=== PATIENT | female | born 1990 | race Caucasian/White ===

== ENCOUNTER 2017-12-24 13:47 | Emergency (ER) | payer OTHER ==
--- NOTE | 2017-12-24 13:55 | ED Physician Documentation ---
General Adult - HISTORIAN Historian: patient - HPI Stated Complaint: migraine Chief Complaint: Headache Onset: other (she has issues with migraines but this specific one has lasted several days . She ahd vomiting the last two days. No fever. ) Timing: still present Severity: moderate Further Comments: yes (reports history of migraine. she was seen in the clinic today for the migraine and when walking to the parking lot she became diaphoretic and mom was scared she was having a reaction to the med and she brought her into the ER. The patient states she still has the headache and she now feels nausea and fatigue. No fever. No head injury . Headache is the same although lasting longer - mom states it has been trending toward longer and longer migraines . She has an appt with Neuro.) - ROS CONST: no problems EYES/ENT: denies: problems with vision CVS/RESP: denies: chest pain, shortness of breath GI/: vomiting, nausea (with the migraine ) MS/SKIN/LYMPH: denies: joint pain, leg swelling, rash NEURO/PSYCH: headache, dizziness. denies: numbness, difficulty walking, difficulty with speech, anxiety - PAST HX Past History: other (anxiety, depression hyperthyroid (now hypothyroid due to treatment) ) Other History: none Surgeries/Procedures: other (ear tubes , T& A and breast reduction ) Immunizations: UTD Allergies/Adverse Reactions: Allergies Allergy/AdvReac Type Severity Reaction Status Date / Time gluten Allergy Verified 12/24/17 14:11 morphine Allergy Verified 12/24/17 14:11 phentermine Allergy Verified 12/24/17 14:11 rofecoxib [From Vioxx] Allergy Verified 12/24/17 14:11 Home Medications: Ambulatory Orders Medication Instructions Recorded Duloxetine HCl 120 mg PO DAILY 08/18/17 Levonorgestrel-Ethin Estradiol 1 each PO DAILY 08/18/17 [Quasense 0.15-0.03 Mg Tablet] Levothyroxine Sodium [Synthroid] 200 mcg PO DAILY u2 08/18/17 Lorazepam 1 mg PO TID PRN u2 08/18/17 Metoprolol Tartrate 50 mg PO prn u2 08/18/17 Azelastine HCl [Astelin] 1 applic IH D 12/24/17 Cholecalciferol (Vitamin D3) 400 unit PO D 12/24/17 [Vitamin D3] Codeine/Butalbital/ASA/Caffein 1 tab PO D 12/24/17 [Butalbital Comp-Codeine #3 Cap] Cyanocobalamin (Vitamin B-12) 1,000 mcg PO D 12/24/17 [Vitamin B-12] Nebivolol HCl [Bystolic] 10 mg PO PRN PRN 12/24/17 Vit Calc,Iron,Folic 1 tab PO D 12/24/17 [ Vitamins] diphenhydrAMINE HCL [Benadryl] 25 mg PO PRN PRN 12/24/17 - SOCIAL HX Smoking History: non-smoker Alcohol Use: none Drug Use: none - FAMILY HX Family History: No - REVIEWED ASSESSMENTS Nursing Assessment Reviewed: Yes Vitals Reviewed: Yes Progress - Progress Progress: 1510: reports the nausea is gone but pain of headache 03/23 DG 1536: headache remains 02/20 DG 1600: states pain is slightly easing but she now thinks her muscles at the base of her neck/shoulders could be the pain issue DG 1636: sleeping in room states her pain is now at a "tolerable level" 11/20. DG General Adult Physical Exam - PHYSICAL EXAM GENERAL APPEARANCE: mild distress EENT: eye inspection normal, ENT inspection normal, pharynx normal, no signs of dehydration, FATEMEH, TM's nml NECK: normal inspection RESPIRATORY: no resp distress, chest non-tender, breath sounds normal CVS: reg rate & rhythm, heart sounds normal, equal pulses, no murmur ABDOMEN: soft, normal bowel sounds BACK: normal inspection SKIN: warm/dry, normal color EXTREMITIES: non-tender, normal range of motion, no evidence of injury, no edema NEURO: oriented X3, CN's nml as tested, motor nml, sensation nml, mood/affect nml, cognition normal Discharge Clincal Impression: Migraine aura, persistent, intractable Referrals: Primary Doctor,No [Primary Care Provider] - 2 Days Comments: 1. Flexeril 10 mg take 1 by mouth TID as needed for muscle pain 2. Amitriptyline 25 mg take 1 by mouth at bedtime 3. Zofran 4 mg take 1 by mouth every 8 hours as needed for nausea 4. Follow up with Neurology as scheduled 5. Return to ER when unable to control pain or other concerns Condition: Stable Disposition: 01 HOME, SELF-CARE Decision to Admit: NO Date of Decison to Admit: 12/24/17 Decision Time: 16:40
[2017-12-24] MEDS: 0.9 % SODIUM CHLORIDE 1,000 ML IV ONE (14:45)
[2017-12-24] MEDS: ONDANSETRON HCL/PF 4 MG/ 2ML VIAL IVP ONE (14:47)
[2017-12-24 14:55] LABS: BASOPHILS % 0.8 (0.0-1.5); EOSINOPHILS % 2.6 % (0.0-6.8); MEAN CORPUSCULAR VOLUME 89.1 fl (80.0-100.0); MONOCYTES % 3.7 % (0.0-11.0)
[2017-12-24 15:10] LABS: eGFR (African) > 60; eGFR (Non-African) > 60
[2017-12-24] MEDS: fentaNYL CITRATE/PF 100 MCG/ 2ML AMP IVP ONE ×2 (15:18→15:40)
[2017-12-24] MEDS: ORPHENADRINE CITRATE 60 MG/2ML IV ONE (16:18)
[2017-12-24 16:57] VITALS: BP 108/72
== END 2017-12-24 16:50 | disposition home or self-care (01) ==
LOC: ED 13:47
DX: G43.119 Migraine with aura, intractable, without status migrainosus (principal)
CPT/HCPCS: 80053; 85025; J2360; J2405; J3010; J7030; 96365; 96375; 96376; 99284; S1016

== ENCOUNTER 2018-03-30 10:25 | Outpatient (CLI) | payer OTHER ==
--- NOTE | 2018-03-30 10:59 | Diagnostic Imaging Report ---
NIRU MERRILL [facility] [address] [facility] [address] [address] Report Submission Date: Mar 30, 2018 10:52:07 AM CDT Patient Study Name: YAZMIN ALMANZA Date: Mar 30, 2018 10:26:23 AM CDT Modality Type: DX Gender: F Description: UPPER EXTREMITY : 86 Institution: [facility] Physician: NIRU MERRILL Right forearm History: Pain after fall AP and lateral projections of the right forearm were obtained which demonstrate no evidence for acute fracture or dislocation. Mineralization is normal. Impression: No osseous abnormality. Electronically signed on Mar 30, 2018 10:52:07 AM CDT by: Melva DUNHAM
== END 2018-03-30 10:30 ==
LOC: RAD 10:25
PROVIDERS: ATTEND Family Medicine
DX: M79.601 Pain in right arm (principal)
CPT/HCPCS: 73090

== ENCOUNTER 2018-06-17 08:44 | Outpatient (CLI) | payer OTHER ==
[2018-06-17 09:28] LABS: eGFR (Non-African) > 60
== END 2018-06-17 08:46 ==
LOC: LAB 08:44
PROVIDERS: ATTEND Nurse Practitioner Family
DX: E03.9 Hypothyroidism, unspecified (principal); R25.2 Cramp and spasm
CPT/HCPCS: 36415; 80053; 84439; 84443; 84481

== ENCOUNTER 2018-06-23 11:07 | Emergency (ER) | payer OTHER ==
[2018-06-23] MEDS ORDERED: METOPROLOL TARTRATE 5 MG/5 ML VIAL IVP ONE (11:17)
[2018-06-23] MEDS ORDERED: 0.9 % SODIUM CHLORIDE 1,000 ML IV ONE ×2 (11:24→12:45)
--- NOTE | 2018-06-23 11:24 | ED Physician Documentation ---
Chest Pain - HISTORIAN Historian: patient - HPI Stated Complaint: chest pain/thyroid problems Chief Complaint: Chest Pain Additional Information: Patient with past medical history of hypothyroidism, presents with chest pain, shakiness and heart palpitations. She states her PCP increased her thyroid medication a few months ago when her TSH was above 4.0. A week ago she began to experience shakiness, heart palpitations so she had her TSH checked; it was 0.0014. Her PCP stopped her added dose of thyroid medication. Today while at work she her symptoms intensified so she came to the ED. She states she has had "thyroid storms" in the past and has metoprolol PRN to take at home but she was unable to get home to take it. Onset: hours (2) Timing: sudden onset Duration: sudden-onset Last known Well Date: 06/23/18 Last Known Well Time: 09:00 Context: other (at work) Severity: moderate - ROS CONST: none MS/LYMPH: none GI/: diarrhea EYES/ENT: none SKIN/ENDO: none NEURO/PSYCH: anxiety, depression - PAST HX AR risk factors: no pertinent history DVT/PE Risk Factors: none TAD/AAA risk factors: none Neuro deficit: none GI disease: none Lung disease: none Surgeries/Procedures: none Allergies/Adverse Reactions: Allergies Allergy/AdvReac Type Severity Reaction Status Date / Time gluten Allergy Verified 06/23/18 12:21 morphine Allergy Verified 06/23/18 12:21 phentermine Allergy Verified 06/23/18 12:21 rofecoxib [From Vioxx] Allergy Verified 06/23/18 12:21 Home Medications: Ambulatory Orders Medication Instructions Recorded Duloxetine HCl 120 mg PO DAILY 08/18/17 Levonorgestrel-Ethin Estradiol 1 each PO DAILY 08/18/17 [Quasense 0.15-0.03 Mg Tablet] Levothyroxine Sodium [Synthroid] 200 mcg PO DAILY u2 08/18/17 Lorazepam 1 mg PO TID PRN u2 08/18/17 Metoprolol Tartrate 50 mg PO prn u2 08/18/17 Azelastine HCl [Astelin] 1 applic IH D 12/24/17 Cholecalciferol (Vitamin D3) 400 unit PO D 12/24/17 [Vitamin D3] Codeine/Butalbital/ASA/Caffein 1 tab PO D 12/24/17 [Butalbital Comp-Codeine #3 Cap] Cyanocobalamin (Vitamin B-12) 1,000 mcg PO D 12/24/17 [Vitamin B-12] Nebivolol HCl [Bystolic] 10 mg PO PRN PRN 12/24/17 Vit Calc,Iron,Folic 1 tab PO D 12/24/17 [ Vitamins] diphenhydrAMINE HCL [Benadryl] 25 mg PO PRN PRN 12/24/17 - SOCIAL HX Smoking History: non-smoker Alcohol Use: none Drug Use: none - FAMILY HX Family HX: none - VITAL SIGNS Vital Signs: Vital Signs Temp Pulse Resp BP Pulse Ox 108/72 12/24/17 16:54 Progress - Progress Progress: 1353 Patient is feeling better. She is refusing to give a urine sample. - EKG/XRAY/CT EKG: NSR Comments: short QT interval ED Results Lab/Radiology - Radiology Radiology Impressions: Examination: Portable chest History: Evaluate lungs Comparison exam: None provided. Findings: Single view of the chest demonstrates a normal cardiac and mediastinal silhouette. Lung valencia without focal infiltrate. No blunting of the costophrenic margins. Osseous structures are appropriate for age. Impression: No acute pulmonary process. Electronically signed on Jun 23, 2018 12:24:59 PM MANAGING ATTORNEY by: Abelardo Randall - Orders Orders: ED Orders Category Date Time Status Place IV Lock 1T Care 06/23/18 11:14 Ordered CHEST 1VIEW [RAD] Stat Exams 06/23/18 Ordered CBC/PLATELET/DIFF Routine Lab 06/23/18 Ordered CMP Routine Lab 06/23/18 Ordered NT-proBNP Stat Lab 06/23/18 Ordered THYROID PANEL (TSH, FT3, FT4) Stat Lab 06/23/18 Ordered TROPONIN I (cTnI) Stat Lab 06/23/18 Ordered UA W/MICRO IF INDICATED Routine Lab 06/23/18 11:16 Ordered UDS [DRUG SCREEN URINE MEDICAL ONLY] Routine Lab 06/23/18 Ordered URINE HCG [URINE HCG] Stat Lab 06/23/18 Uncollected Metoprolol Tartrate [Toprol] Med 06/23/18 11:17 Once 5 mg IVP NOW ONE EKG WITH COMPARISON Stat Ther 06/23/18 Ordered Chest Pain Physical Exam - EXAM General Appearance: anxious EENT: FATEMEH Neck: nml inspection Respiratory: no resp. distress, nml breath sounds CVS: no murmur, tachycardia Abdomen: soft, normal bowel sounds, non-tender Skin: warm/dry Extremities: non-tender Neuro: oriented X3, CN's nml as tested, motor nml, sensation nml Discharge Clincal Impression: Heart palpitations Referrals: Christi Riley DO [Primary Care Provider] - 2 Days Additional Instructions: 1. Stop taking ALL of your thyroid medication. Do NOT restart this medication until you follow up with your primary provider 2. Take your Metoprolol as directed by your primary provider 3. Return to the ED with chest pain, shortness of breath, or heart palpitations. 4. Follow up with your PCP within 3 days. Comments: Solumedrol, Tapazole, Metoprolol IV, 2 liters normal saline given in ED. Condition: Stable Disposition: 01 HOME, SELF-CARE Decision to Admit: NO Date of Decison to Admit: 06/23/18 Decision Time: 13:54
[2018-06-23] MEDS ORDERED: LORazepam 2 MG/ML VIAL IVP ONE (11:35)
[2018-06-23 11:45] LABS: MEAN CORPUSCULAR HEMOGLOBIN 30.6 pg (28.0-34.0)
[2018-06-23 11:46] LABS: BASOPHILS % 0.2 (0.0-1.5); MONOCYTES % 5.7 % (0.0-11.0); NEUTROPHILS # 3.1 # k/uL (1.4-7.7)
[2018-06-23 12:01] LABS: eGFR (Non-African) > 60
--- NOTE | 2018-06-23 12:27 | Diagnostic Imaging Report ---
PABLO JUSTICE [facility] [address] [facility] [address] [address] Report Submission Date: Jun 23, 2018 12:24:59 PM [employer]URE Patient Study Name: YAZMIN ALMANZA Date: Jun 23, 2018 11:50:51 AM [employer] Modality Type: DX Gender: F Description: CHEST : 86 Institution: [facility] Physician: PABLO JUSTICE Examination: Portable chest History: Evaluate lungs Comparison exam: None provided. Findings: Single view of the chest demonstrates a normal cardiac and mediastinal silhouette. Lung valencia without focal infiltrate. No blunting of the costophrenic margins. Osseous structures are appropriate for age. Impression: No acute pulmonary process. Electronically signed on Jun 23, 2018 12:24:59 PM [employer] PRESSURE by: Abelardo DUNHAM
[2018-06-23] MEDS ORDERED: methylPREDNISolone SOD SUCC 125 MG/2 ML VIAL IVP ONE (12:31)
[2018-06-23] MEDS ORDERED: ONDANSETRON HCL/PF 4 MG/ 2ML VIAL IVP ONE (12:50)
[2018-06-23] MEDS ORDERED: ONDANSETRON HCL/PF 4 MG/ 2ML VIAL ONE (12:50)
[2018-06-23 14:11] VITALS: BP 111/71
[2018-06-24] MEDS ORDERED: METHIMAZOLE 10 MG TABLET PO ONE (11:44)
== END 2018-06-23 14:09 | disposition home or self-care (01) ==
LOC: ED 11:07 → SUPCPDRO 11:07 → ED 14:09
DX: R00.2 Palpitations (principal); E03.9 Hypothyroidism, unspecified
CPT/HCPCS: 36415; 71045; 80053; 83880; 84439; 84443; 84481; 84484; 85025; 93005; 96365; 96366; 96375; 99283; 99285; J2060; J2405; J2930; J3490; J7030; S1016

== ENCOUNTER 2018-07-03 13:13 | Outpatient (CLI) | payer OTHER | END 2018-07-03 13:18 | LOC: LAB 13:13 | PROVIDERS: ATTEND Family Medicine | DX: E05.81 Other thyrotoxicosis with thyrotoxic crisis or storm (principal) | CPT/HCPCS: 36415; 84439; 84443; 84481 ==

== ENCOUNTER 2019-01-06 17:06 | Outpatient (CLI) | payer OTHER ==
[2019-01-06 17:52] LABS: BASOPHILS % 0.5 % (0.0-1.5); NEUTROPHILS # 4.1 # k/uL (1.4-7.7)
[2019-01-06 18:56] LABS: eGFR (Non-African) > 60
== END 2019-01-06 17:07 ==
LOC: LAB 17:06
PROVIDERS: ATTEND Psychiatry & Neurology Neurology
DX: R51 Headache (principal); I10 Essential (primary) hypertension; G47.00 Insomnia, unspecified
CPT/HCPCS: 80053; 81050; 82306; 82607; 82746; 83835; 84425; 85025; 86140; 86376; 86800